=== PATIENT | male | born 2000 | race Caucasian/White ===

== ENCOUNTER 2023-05-13 15:40 | Emergency (ER) | payer OTHER ==
[2023-05-13 16:14] VITALS: RESP 18; TEMP 98
[2023-05-13] MEDS ORDERED: KETOROLAC 15 MG/ML 1 ML VIAL IM STA (16:39)
--- NOTE | 2023-05-13 17:10 | XR ---
EXAMINATION TYPE: XR chest 2V DATE OF EXAM: 05/13/2023 4:57 PM COMPARISON: none TECHNIQUE: XR chest 2V Frontal and lateral views of the chest. CLINICAL INDICATION:Male, 22 years old with history of fall r/o broken rib/ pneumothorax; FINDINGS: Lungs/Pleura: There is no evidence of pleural effusion, focal consolidation, or pneumothorax. Pulmonary vascularity: Unremarkable. Heart/mediastinum: Cardiomediastinal silhouette is unremarkable. Musculoskeletal: No acute osseous pathology. IMPRESSION: No acute cardiopulmonary disease/process.
--- NOTE | 2023-05-13 17:10 | XR ---
EXAMINATION TYPE: XR shoulder limited RT DATE OF EXAM: 05/13/2023 4:57 PM INDICATION: Patient age:Male; 22 years old; Reason for study: r shoulder pain; COMPARISON: None TECHNIQUE: The right shoulder was examined in AP, internally rotated and scapular Y projections. FINDINGS: No evidence of acute osseous pathology, joint dislocation, or soft tissue swelling. The remaining por tions of the visualized chest are unremarkable. IMPRESSION: No acute osseous pathology.
--- NOTE | 2023-05-13 17:11 | XR ---
EXAMINATION TYPE: XR wrist complete RT DATE OF EXAM: 05/13/2023 4:57 PM INDICATION: Patient age:Male; 22 years old; Reason for study: r wrist pain; COMPARISON: None TECHNIQUE: right wrist was examined in the. Frontal, navicular, lateral, and oblique. FINDINGS: No acute osseous pathology, joint dislocation, or joint effusion. No evidence of any soft tissue swelling is seen. IMPRESSION: No acute osseous pathology.
[2023-05-13 17:33] LABS: Appearance,Urine Clear (Clear); Bilirubin,Urine Negative (Negative); Blood,Urine Negative (Negative); Color,Urine Yellow; Glucose,Urine (UA) Negative (Negative); Ketones,Urine Negative (Negative); Leukocyte Esterase,Urine Negative (Negative); Nitrite,Urine Negative (Negative); PH, Urine 7.5 (5.0-8.0); Protein,Urine Trace (Negative); Specific Gravity,Urine 1.022 (1.001-1.035)
[2023-05-13] MEDS ORDERED: BACITRACIN OINT 1 EACH PACKET TOPICAL ONE (18:14)
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
[2023-05-13 18:27] VITALS: BP 132/78; PULSE 90
== END 2023-05-13 18:27 | disposition home or self-care (01) ==
LOC: EC 15:40
DX: S80.212A Abrasion, left knee, initial encounter (principal); S50.311A Abrasion of right elbow, initial encounter; S00.81XA Abrasion of other part of head, initial encounter; M25.511 Pain in right shoulder; V19.9XXA Pedal cyclist (driver) (passenger) injured in unspecified traffic accident, initial encounter; Y93.55 Activity, bike riding
CPT/HCPCS: 81003; 73020; 73110; 71046; 99283; 96372; J1885